=== PATIENT | female | born 1990 | race African-American/Black ===

== ENCOUNTER 2016-11-14 15:01 | Emergency (ER) | payer OTHER ==
[~2016-11-14] VITALS: Ht 167.6 cm; Wt 86.2 kg
--- NOTE | ~2016-11-14 | CR281 ---
[facility] A Service of [facility] & [facility] RADIOLOGY TEXT RESULTS PATIENT: JENN REYNOLDS LOCATION: [facility] : [birth year] UNIT #: [id number] AGE: [address]: Denise Finch SEX: F ORDER DR: [id number] [facility] [address] [place], [place] [address] [id number] E MR#: [id number] Acc #: [id number] NAME: JENN REYNOLDS : 1990 SEX: F STUDY DATE/TIME: 11/14/2016 15:28 UNIT: [facility] ROOM: STUDY DESCRIPTION: CR Wrist Min 3 View Lt Attending Physician: Denise Finch P.A.-C. Ordering Physician: Denise Finch P.A.-C. [facility] REPORT This report is preliminary unless electronic signature is present EXAM Left wrist INDICATION Left wrist pain for 3 weeks. FINDINGS Three views of the left wrist without comparison. There is no acute fracture or dislocation. No malalignment. No foreign body. IMPRESSION Negative left wrist. Dictated by... Freddie George M.D. THIS IS AN ELECTRONICALLY VERIFIED REPORT Freddie George M.D. at 11/16/2016 10:28 AM EHSAN/todd TD: 11/15/2016 07:44 JOB #: [id number] MEDICAL IMAGING REPORT Page 1 of 1 COPY
--- NOTE | ~2016-11-14 | CR282 ---
[facility] A Service of [facility] & [facility] RADIOLOGY TEXT RESULTS PATIENT: JENN REYNOLDS LOCATION: [facility] : [birth year] UNIT #: [id number] AGE: [address]: Denise Finch SEX: F ORDER DR: [id number] [facility] [address] [place], [place] [address] [id number] E MR#: [id number] Acc #: [id number] NAME: JENN REYNOLDS : 1990 SEX: F STUDY DATE/TIME: 11/14/2016 15:28 UNIT: [facility] ROOM: STUDY DESCRIPTION: CR Wrist Min 3 View Rt Attending Physician: Denise Finch P.A.-C. Ordering Physician: Denise Finch P.A.-C. Primary Care Physician: [facility] MEDICAL IMAGING REPORT This report is preliminary unless electronic signature is present EXAM Right wrist INDICATIONS Right wrist pain for 3 weeks. FINDINGS Three views of the right wrist without comparison. There is no acute fracture or dislocation. Alignment is anatomic. No foreign body. IMPRESSION Negative right wrist Dictated by... Freddie George M.D. THIS IS AN ELECTRONICALLY VERIFIED REPORT Freddie George M.D. at 11/16/2016 10:28 AM EHSAN/slime TD: 11/15/2016 07:24 JOB #: [id number] MEDICAL IMAGING REPORT Page 1 of 1 COPY
== END 2016-11-14 16:26 | disposition home or self-care (01) ==
LOC: CFTX 15:01 → CED 15:01 → CFTX 15:13
DX: M77.9 Enthesopathy, unspecified (principal); Z88.1 Allergy status to other antibiotic agents
CPT/HCPCS: 73110; 99283